=== PATIENT | female | born 1970 | race Caucasian/White ===

== ENCOUNTER 2018-08-28 07:17 | Day surgery (SDC) | payer MEDICAID ==
[~2018-08-28 07:17] MED LIST: DESFLURANE 15 MIN
[2018-08-28 08:20] LABS: ADD MAN DIFF? NO
[2018-08-28 08:22] LABS: BASOPHIL # 0.2 10^3/ul (0.0-0.1); BASOPHILS % 1.5 % (0.0-2.0); EOSINOPHILS # 0.1 10^3/ul (0.0-0.5); EOSINOPHILS % 0.6 % (0.0-7.0); HEMATOCRIT 45.3 % (37.0-47.0); LYMPHOCYTES # 2.5 10^3/ul (0.8-2.9); LYMPHOCYTES % 24.8 % (15.0-51.0); MEAN CORPUSCULAR HEMOGLOBIN 30.5 pg (29.0-33.0); MEAN CORPUSCULAR HGB CONC 33.1 g/dl (32.0-37.0); MEAN CORPUSCULAR VOLUME 92.1 fl (82.0-101.0); MEAN PLATELET VOLUME 10.8 fl (7.4-10.4); MONOCYTE # 0.7 10^3/ul (0.3-0.9); NEUTROPHIL # 6.5 10^3/ul (1.6-7.5); NEUTROPHILS % 65.5 % (39.0-77.0); PLATELET COUNT 284 10^3/UL (140-415); RED BLOOD COUNT 4.92 10^6/ul (4.20-5.40); RED CELL DISTRIBUTION WIDTH 13.4 % (11.5-14.5)
[2018-08-28 08:41] LABS: ALANINE AMINOTRANSFERASE 28 IU/L (13-69); ALBUMIN/GLOBULIN RATIO 1.21; ALKALINE PHOSPHATASE 88 IU/L (42-121); ANION GAP 14 (5-13); ASPARTATE AMINO TRANSFERASE 27 IU/L (15-46); BILIRUBIN,INDIRECT 0.3 mg/dl (0-1.1); BILIRUBIN,TOTAL 0.3 mg/dl (0.2-1.3); BLOOD UREA NITROGEN 12 mg/dl (7-20); CALCIUM 9.9 mg/dl (8.4-10.2); CARBON DIOXIDE 30 mmol/L (21-31); CHLORIDE 101 mmol/L (97-110); CREATININE 0.51 mg/dl (0.44-1.00); Estimated GFR > 60 mL/min (>60); GLUCOSE 101 mg/dl (70-220); POTASSIUM 4.3 mmol/L (3.5-5.1); TOTAL PROTEIN 9.1 g/dl (6.1-8.1)
[2018-08-28 08:42] LABS: INR 0.83; PROTIME 11.5 Sec (11.9-14.9); PT RATIO 0.9
[2018-08-28 08:43] LABS: PARTIAL THROMBOPLASTIN TIME 28.4 Sec (23.0-35.0)
[2018-08-28] MEDS ORDERED: CEFAZOLIN 2 GM/50 ML (PMX) 50 ML IVPB (09:00)
[2018-08-28 09:04] LABS: SODIUM 145 mmol/L (135-144)
[2018-08-28] MEDS: ACETAMINOPHEN 500 MG TAB PO (09:36)
[2018-08-28] MEDS: SOD CHLORIDE 0.9% 1,000 ML IV (09:37)
[2018-08-28] MEDS ORDERED: ISOSULFAN BLUE 1% 5 ML INJ SC (09:58)
[2018-08-28] MEDS ORDERED: DIPHENHYDRAMINE 50 MG INJ IV (10:00)
[2018-08-28] MEDS ORDERED: morphine (1 MG/ML) 10ML SYRINGE IV ×2 (10:00)
[2018-08-28] MEDS ORDERED: OXYCODONE/ACETAMINOPHEN (5/325) TAB PO ×2 (10:00)
[2018-08-28] MEDS ORDERED: HYDROmorphONE 1 MG/5 ML IV SYRINGE IV (10:00)
[2018-08-28] MEDS ORDERED: LABETALOL HCL 20MG INJ IV (10:00)
[2018-08-28] MEDS ORDERED: MEPERIDINE 25 MG INJ IV (10:00)
[2018-08-28] MEDS ORDERED: ALBUTEROL 0.083% (NEB) 2.5 MG/3 ML AMP HHN (10:00)
[2018-08-28] MEDS ORDERED: ONDANSETRON 4 MG INJ IV (10:00)
[2018-08-28] MEDS ORDERED: FENTAnyl 50 MCG/ML VIAL IV ×2 (10:00)
[2018-08-28] MEDS ORDERED: METOCLOPRAMIDE 10 MG INJ (10:02)
[2018-08-28] MEDS ORDERED: MIDAZOLAM 1 MG/ML 2 ML INJ (10:02)
[2018-08-28] MEDS ORDERED: CEFAZOLIN 1 GM INJ (10:26)
[2018-08-28] MEDS ORDERED: PROPOFOL 20 ML ×2 (10:26→10:39)
[2018-08-28] MEDS ORDERED: FENTAnyl 50 MCG/ML VIAL (10:26)
[2018-08-28] MEDS ORDERED: ONDANSETRON 4 MG INJ (10:30)
[2018-08-28] MEDS ORDERED: HYDROmorphONE 2 MG/ML SYG (10:32)
[2018-08-28] MEDS ORDERED: KETOROLAC 30 MG INJ (11:02)
[2018-08-28] MEDS: HYDROmorphONE 1 MG/5 ML IV SYRINGE IV (11:50)
== END 2018-08-28 14:15 | disposition home or self-care (01) ==
LOC: SDS 07:17
DX: N60.31 Fibrosclerosis of right breast (principal); Z85.3 Personal history of malignant neoplasm of breast; I10 Essential (primary) hypertension
CPT/HCPCS: 19120; 80053; 84703; 85025; 85610; 85730; 88307